=== PATIENT | female | born 1940 | race Caucasian/White ===

== ENCOUNTER → 2016-06-18 13:55 | Outpatient (CLI) | payer MEDICARE, BC ==
[2011-02-05 06:26] VITALS: BMI 31.0
== END | disposition home or self-care (01) ==
LOC: D.MRI 13:55
DX: M75.101 Unspecified rotator cuff tear or rupture of right shoulder, not specified as traumatic (principal)

== ENCOUNTER → 2017-03-09 15:48 | Outpatient (CLI) | payer MEDICARE, BC ==
[2011-02-05 06:26] VITALS: BMI 31.0
== END | disposition home or self-care (01) ==
LOC: D.MAMMO 10:45
DX: Z12.31 Encounter for screening mammogram for malignant neoplasm of breast (principal)

== ENCOUNTER → 2017-09-09 10:29 | Outpatient (CLI) | payer MEDICARE, BC ==
[2011-02-05 06:26] VITALS: BMI 31.0
== END | disposition home or self-care (01) ==
LOC: D.MRI 10:29
DX: M54.16 Radiculopathy, lumbar region (principal)

== ENCOUNTER → 2018-03-21 09:02 | Outpatient (CLI) | payer MEDICARE, BC ==
[2011-02-05 06:26] VITALS: BMI 31.0
[~2018-03-21 09:02] MED LIST: APAP325 MG PO; ASPIRIN EC81 M1 PO; CARDURA4 MG PO; DICLOFENAC SODI50 MG PO; DILAUDID2 MG PO; ESTRACE1 MG PO; GLUCOTROL 5 MG T5 MG PO; NEURONTIN 300300 MG PO; NORMODYNE / TR200 MG PO; OMEPRAZOLE20 M1 PO; PRAVACHOL40 MG PO
[2018-04-14 07:38] VITALS: BMI 29.2
== END | disposition home or self-care (01) ==
LOC: D.MRI 08:30
DX: M25.511 Pain in right shoulder (principal)

== ENCOUNTER 2018-04-14 07:00 | Day surgery (SDC) | payer MEDICARE, BC ==
[2018-04-12 12:13] LABS: HEMATOCRIT 33.6 % (36.0-48.0); HEMOGLOBIN 11.1 g/dL (12-16); MCH 29.1 pg (26.0-34.0); MEAN PLATELET VOLUME 10.3 fL (7.4-10.4); RBC 3.82 10x6/uL (4.00-5.40); RDW 12.6 % (11.5-14.5); WBC 5.8 10x3/uL (4.8-10.8)
[2018-04-12 12:27] LABS: ANION GAP 9.7 mmol/L (8-16); CALCIUM 8.6 mg/dL (8.5-10.1); CARBON DIOXIDE 29.5 mmol/L (21.0-32.0); CREATININE - SERUM 1.3 mg/dL (0.6-1.3); POTASSIUM - SERUM 4.2 mmol/L (3.5-5.1)
[~2018-04-14] VITALS: Ht 160 cm; Wt 74.8 kg
--- NOTE | ~2018-04-14 | OP ---
PATIENT NAME: MYNOR LEWIS MEDICAL RECORD: [id number] :42 [facility] DATE: SURGEON: ROSENDO RODRIGUEZ, TERI LOFTON DATE OF OPERATION: 04/14/2018 PREOPERATIVE DIAGNOSES: 1. Right shoulder rotator cuff tear. 2. Impingement syndrome. 3. Acromioclavicular arthritis. POSTOPERATIVE DIAGNOSES: 1. Right shoulder rotator cuff tear. 2. Impingement syndrome. 3. Acromioclavicular arthritis. PROCEDURES: 1. Right shoulder arthroscopic rotator cuff repair. 2. Arthroscopic distal clavicle excision done through separate incision-1 cm. 3. Arthrex subacromial decompression, acromioplasty, and bursectomy. SURGEON: Teri Robbins MD ANESTHESIA: General. INTRAOPERATIVE COMPLICATIONS: None. SUMMARY OF PATHOLOGIC FINDINGS: The patient did indeed have a large rotator cuff tear that required multiple suture anchor fixation. Furthermore, the patient had a profound anterior acromion hook with excoriation of the coracoacromial ligament as well as acromioclavicular arthritis. OPERATIVE SUMMARY IN DETAIL: After obtaining appropriate preoperative orthopedic surgery consent as well as anesthetic consultation, evaluation, and clearance, the patient was brought to the operating room and placed on the operating table in supine position. After general laryngeal mask airway was administered, the patient was placed in right lateral decubitus position. All pressure points were well padded to include down leg peroneal pad as well as axillary roll. The patient was held firmly to the operating table using vacuum pack suction system. The patient's right upper extremity and shoulder were then prepped and draped in routine sterile fashion. Arm was held in the Arthrex traction boom at 30 degrees of forward flexion, 30 degrees of abduction with 10 pounds of traction laterally. Arthroscopy was established in the glenohumeral joint from a posterior portal. Anterior portal was established in the anterior safe interval. Diagnostic arthroscopy did show the patient to have a large rotator cuff tear. A transrotator cuff tear portal was created for decortication of the patient's supraspinatus tendinous footprint. Ironically, the patient had already had the biceps tendon torn and there was no residual in the shoulder. After decortication of the supraspinatus tendinous footprint, attention was turned to the subacromial space. While in the subacromial space, Arthrex tissue ablation system was utilized to denude the undersurface of the acromion of all soft tissue elements and release the coracoacromial ligament. A 5-0 barrel bur was then used to perform acromioplasty at the level of acromioclavicular joint and then through a separate anterior arthroscopic portal under direct arthroscopic visualization, distal clavicle excision was done for 1 cm. Having completed this, further decortication was carried out of the OPERATIVE REPORT [id number] MYNOR LEWIS supraspinatus tendinous footprint and then a total of 3 inverted mattress sutures with FiberTape were then utilized to reapproximate the rotator cuff back to the footprint with a combination of 3 suture anchors that being a 5.5 SwiveLock and two 4.75 SwiveLocks resulting in excellent reapproximation of the tendon back to its footprint. Having completed this, arthroscopy portals were closed in routine interrupted fashion using 4-0 Prolene. Sterile dressings were applied. The patient was awakened and taken to recovery room in stable condition. All final needle and sponge counts were correct. TRANSINT:[id number] Voice Confirmation ID: [id number] DOCUMENT ID: [id number] 04/27/2018 Edited, akbar ROBBINS MD, TERI LOFTON at 1442 CC: [id number] DICTATION DATE: 04/15/181108 STAFF SCIENTIST: 04/15/18 1303 [facility] 04/14/18 [place] [id number]
[~2018-04-14 07:00] MED LIST changes: -DILAUDID2 MG PO
[2018-04-14 07:38] VITALS: BP 148/61; Ht 160 cm; Wt 74.8 kg
[2018-04-14] MEDS ORDERED: DILAUDID2 MG PO (11:35)
== END 2018-04-14 13:31 | disposition home or self-care (01) ==
LOC: D.OPS 07:00 → D.PAN 10:15 → D.OPS 13:31
PROVIDERS: Anesthesiology
DX: M75.122 Complete rotator cuff tear or rupture of left shoulder, not specified as traumatic (principal); M75.42 Impingement syndrome of left shoulder; M13.812 Other specified arthritis, left shoulder; Z01.812 Encounter for preprocedural laboratory examination

== ENCOUNTER → 2018-09-14 10:23 | Outpatient (CLI) | payer MEDICARE, BC ==
[~2018-09-14 10:23] MED LIST changes: +DILAUDID2 MG PO
== END | disposition home or self-care (01) ==
LOC: D.HCCARDIO 10:23
DX: I35.8 Other nonrheumatic aortic valve disorders (principal); I20.9 Angina pectoris, unspecified

== ENCOUNTER → 2018-09-21 06:51 | Outpatient (CLI) | payer MEDICARE, BC ==
[2018-04-14 07:38] VITALS: BMI 29.2
== END | disposition home or self-care (01) ==
LOC: D.US 06:51
PROVIDERS: ATTEND Family Medicine
DX: R10.11 Right upper quadrant pain (principal)

== ENCOUNTER 2018-09-29 06:04 | Outpatient (CLI) | payer MEDICARE, BC ==
[~2018-09-29] VITALS: Ht 160 cm; Wt 72.7 kg
--- NOTE | ~2018-09-29 | HEMODYNAMI ---
PATIENT:MYNOR LEWIS MEDICAL RECORD: [id number] : 44 LOCATION:[facility] ADMISSION DATE: 09/29/18 Generatedon:09/29/20188:21 Patient name: MYNOR LEWIS Patient #: [id number] SSN: : 1940 Date of study: 09/29/2018 Page: Of Hemodynamic Procedure Report Patient Data Patient Demographics Procedure consent was obtained First Name: MYNOR Gender: Female Last Name: DEBBIE : 1940 Middle Initial: C Age: 78 year(s) Patient #: [id number] Race: Unknown Additional ID: [id number] Contact details [address]: [address] [place] [address] State: [place] City: [place] Zip code: [address] Past Medical History Allergies Allergen Reaction Date Comments Reported Other allergy 09/29/2018 CODEINE, TRAMADOL Admission Admission Data Admission Date: 09/29/2018 Admission Time: 6:04 Height (in.): 63 BSA: 1.77 (m2) Height (cm.): 160.02 BMI: 28.87 (kg/m2) Weight (lbs.): 163 Weight (kg.): 73.94 Lab Results Lab Result Date: 09/29/2018 Lab Result Time: 0:00 Biochemistry Name Units Result Min Max BUN mg/dl 15 --(--*-)-- 7 18 Creatinine mg/dl 1.4 --(----)*- 0.6 1.3 CBC Name Units Result Min Max Hematocrit % 34.1 *-(----)-- 42 54 Hemoglobin g/dl 11.2 *-(----)-- 13.5 17.5 Procedure Procedure Types Cath Procedure Diagnostic Procedure [facility] w/Coronaries Procedure Description Procedure Date Procedure Date: 09/29/2018 Procedure Start Time: 8:09 Procedure End Time: 8:18 Procedure Staff Name Function Eliu Willard MD Performing Physician Jodie Bautista RN Nurse Sarai Myers RN [employer] Consultant Lilia Natarajan RT Scrub Procedure Data Cath Procedure Fluoroscopy Diagnostic fluoroscopy Total fluoroscopy Time: 2.2 time: 2.2 min min Diagnostic fluoroscopy Total fluoroscopy dose: 384 dose: 384 mGy mGy Contrast Material Contrast Material Type Amount (ml) Isovue 300 54 Entry Location Entry Primary Successful Side Size Upsize Upsize Entry Closure [place] ccessful Closure Location (Fr) 1 (Fr) 2 (Fr) Remarks Device Remarks Radial Right 6 Fr Mechanical artery Short Compression Estimated blood loss: 5 ml Diagnostic catheters Device Type Used For End Catheter Placement DIAGNOSTIC [place] 110cm 5 Procedure Fr catheter ([id number]) Procedure Complications No complications Procedure Medications Medication Administration Route Dosage 0.9% NaCl I.V. 100 ml/hr Oxygen etCO2 Nasal cannula 2 l/min Lidocaine 2% added to field 20 Heparin Flush Bag added to field 2 bags (1000units/500ml NS) Radial Cocktail added to field 1 syringe (Verapomil 2mg/Nitro 400mcg/Heparin 1500units) Versed I.V. 2 mg Fentanyl I.V. 50 mcg Versed I.V. 1 mg Fentanyl I.V. 25 mcg Hemodynamics Rest BSA: 1.77 (m2) HGB: 11.2 (g/dl) O2 Consumption: Estimated: 168.73 (ml/min) O2 Co nsumption indexed: Estimated:95.33 (ml/min/m) Heart Rate: 82 (bpm) Pressure Samples Time Site Value (mmHg) Purpose Heart Use Rate(bpm) 8:11 LV 146/-7,4 EDP 89 8:12 AO 130/57(85) Pullback 84 8:12 LV 139/-6,4 Pullback 84 Gradients Valve Time Site 1 Site 2 Mean SEP/DFP Peak To Heart Use (mmHg) (sec/min) Peak Rate (mmHg) (bpm) Aortic 8:12 LV AO 11 25 9 84 139/-6,4 130/57(85) Calculations Valve P-P Mean Valve Index Valve Source Name Gradient Area Flow (cm2) Aortic 9 11 9 11 Snapshots Pre Cath Intra NCS Post Cath Vital Signs Time Heart Resp SPO2 etCO2 NIBP (mmHg) Rhythm Pain Sedation Rate (ipm) (%) (mmHg) Status Level (bpm) 7:54:56 79 15 98 40.1 200/91(137) NSR 0 (11) 10(A) , No pain 7:59:44 79 12 99 40 201/89(134) NSR 0 (11) 10(A) , No pain 8:04:25 81 14 97 35.6 175/80(123) NSR 0 (11) 10(A) , No pain 8:08:51 83 15 87 35 153/79(116) NSR 0 (11) 9(A) , No pain 8:13:15 86 16 98 38.1 124/68(91) NSR 0 (11) 9(A) , No pain 8:17:35 87 16 96 34.1 141/69(99) NSR 0 (11) 10(A) , No pain Medications Time Medication Route Dose Verified Delivered Reason Notes Ef fectiveness by by 7:59:09 0.9% NaCl I.V. 100 Eliu Jodie used for ml/hr Sudheer Bautista psych tech 7:59:15 Oxygen etCO2 2 l/min Eliu Jodie used for Nasal Sudheer Bautista procedure cannula RN 7:59:20 Lidocaine 2% added 20ml Eliu Eliu for local to vial Sudheer Willard MD anesthetic field 7:59:25 Heparin Flush added 2 bags Eliu Eliu used for Bag to Sudheer Willard MD procedure (1000units/500ml field NS) 7:59:30 Radial Cocktail added 1 Eliu Eliu used for (Verapomil to syringe Sudheer Willard MD procedure 2mg/Nitro field 400mcg/Heparin 1500units) 8:01:30 Versed I.V. 2 mg Eliu Jodie for Sudheer Bautista sedation RN 8:01:40 Fentanyl I.V. 50 mcg Eliu Jodie for Sudheer Bautista sedation RN 8:06:48 Versed I.V. 1 mg Eliu Jodie for Sudheer Bautista sedation RN 8:06:54 Fentanyl I.V. 25 mcg Eliu Jodie for Sudheer Bautista sedation grey tender Log Time Note 7:33:27 Signed procedure consent form obtained from patient. 7:33:28 Diagnostic Cath status Elective 7:33:28 Time tracking: Regular hours (M-F 7:00 - 5:00) 7:33:31 Plan of Care:Hemodynamics will remain stable., Cardiac rhythm will remain stable., Comfort level will be maintained., Respiratory function will remain adequate., Patient/ family verbilizes understanding of procedure., Procedure tolerated without complication., Recovers from procedure without complications.. 7:33:35 Sarai Myres RN sent for patient. Start room use. 7:34:13 H&P Date Dictated: 09/29/2018 Within 30 days and on chart., H&P Addendum completed by physician on day of procedure. (MUST COMPLETE FOR ALL OUTPATIENTS). 7:34:28 Patient allergic to Other allergyCODEINE, TRAMADOL 7:36:14 Patient Height : 63 inches 7:36:19 Patient Weight : 163 lbs 7:45:52 Patient received from Pre/Post Procedure Room to CCL 1 Alert and oriented. Tansferred to table in Supine position. 7:45:53 Warm blankets applied, and paul hugger turned on for patient comfort. 7:45:54 Correct patient and procedure confirmed by team. 7:45:55 ECG and BP/O2 sat monitors applied to patient. 7:52:07 Vital chart was started 7:52:08 Baseline sample Acquired. 7:52:12 Rhythm: sinus rhythm 7:58:20 Full Disclosure recording started 7:58:23 Pre-procedure instructions explained to patient. 7:58:23 Pre-op teaching completed and patient verbalized understanding. 7:58:26 Family in patients room. 7:58:34 Patient NPO since Midnight. 7:58:58 Is patient on blood thinner?No 7:58:59 Patient diabetic? Yes. 7:59:00 If diabetic: On Metformin? No 7:59:04 Previous problem with sedation/anesthesia? No ? 7:59:06 Snore? Yes 7:59:07 Sleep apnea? No 7:59:08 Deviated septum? No 7:59:08 Opens mouth fully? Yes 7:59:09 0.9% NaCl 100 ml/hr I.V. was administered by Jodie Bautista RN; used for procedure; 7:59:09 Sticks out tongue? Yes 7:59:12 Airway obstruction? No ? 7:59:13 Dentures? No ? 7:59:15 Oxygen 2 l/min etCO2 Nasal cannula was administered by Jodie Bautista RN; used for procedure; 7:59:16 Modified Lincoln's test Ulnar < 7 seconds 7:59:18 Patient pain scale 0/10 ?. 7:59:20 Lidocaine 2% 20ml vial added to field was administered by Eliu Willard MD; for local anesthetic; 7:59:22 IV patent on arrival in left hand with 0.9% NaCl at [facility]. 7:59:25 Heparin Flush Bag (1000units/500ml NS) 2 bags added to field was administered by Eliu Willard MD; used for procedure; 7:59:30 Radial Cocktail (Verapomil 2mg/Nitro 400mcg/Heparin 1500units) 1 syringe added to field was administered by Eliu Willard MD; used for procedure; 7:59:52 Lab Result : BUN 15 mg/dl 7:59:52 Lab Result : Creatinine 1.4 mg/dl 7:59:52 Lab Result : Hemoglobin 11.2 g/dl 7:59:52 Lab Result : Hematocrit 34.1 % 7:59:55 Lab results completed and on chart. 7:59:58 Right Radial & Right Groin area was prepped with chlora-prep and draped in sterile fashion 7:59:59 Alarms reviewed by R. N. 8:00:00 Sharps counted by scrub and verified by R.N. 8:00:01 --------ALL STOP TIME OUT------ 8:00:02 Final Timeout: patient, procedure, and site verified with staff and physician. All members of the team are in agreement. 8:00:04 Right Radial & Right Groin site verified by team. 8:00:07 Maximum allowable Isovue 300 dose 300ml. Physician notified. (300ml for normal creatinines. For patients with creatinine of 1.7 or higher multiply weight(kg) x 5 divided by creatinine.) 8:00:10 Fire Safety Assessment: A--An alcohol-based skin anteseptic being used preoperatively., C--Open oxygen or nitrous oxide is being used., D--An ESU, laser, or fiber-optic light is being used. 8:00:14 Physical assessment completed. ASA score P 2 - A patient with mild systemic disease as per Eliu Willard MD. 8:00:17 Sedation plan: IV Moderate Sedation Medication:Versed, Fentanyl 8:00:20 Use device set Radial Dx or PCI 8:00:21 ACIST Syringe (37392) opened to sterile field. 8:00:24 Bag Decanter (2001S) opened to sterile field. 8:00:25 ACIST Hand Control (38966) opened to sterile field. 8:00:25 ACIST Manifold (46867) opened to sterile field. 8:00:25 Tegaderm 4 x 4 (1626W) opened to sterile field. 8:00:27 Medline Cath Pack ([id number]) opened to sterile field. 8:00:28 DIAGNOSTIC WIRE .035 260cm J wire (691646) opened to sterile field. 8:00:28 MBrace Wrist Support ([id number]) opened to sterile field. 8:00:29 NEEDLE Cook 21G 4cm Radial (L20814) opened to sterile field. 8:00:30 SHEATH 6FR Slender (80-1060) opened to sterile field. 8:01:30 Versed 2 mg I.V. was administered by Jodie Bautista RN; for sedation; 8:01:40 Fentanyl 50 mcg I.V. was administered by Jodie Bautista RN; for sedation; 8:06:48 Versed 1 mg I.V. was administered by Jodie Bautista RN; for sedation; 8:06:54 Fentanyl 25 mcg I.V. was administered by Jodie Bautista RN; for sedation; 8:09:03 Zero performed for pressure channel P1 8:09:17 Procedure started. 8:09:23 Local anesthetic to right radial artery with Lidocaine 2% by Eliu Willard MD.INITIAL ACCESS ONLY 8:10:25 A 6 Fr Short sheath was inserted into the Right Radial artery 8:10:46 A DIAGNOSTIC [place] 110cm 5 Fr catheter (183126) was advanced over the wire and used for Procedure. 8:11:37 LV gram done using REDDY 8:11:40 Injector settings: Ml/sec: 7, Volume: 15, 8:11:55 LV hemodynamics recorded. 8:12:11 EF : 55 % 8:13:48 LCA angiography performed. 8:14:50 RCA angiography performed. 8:15:08 Catheter removed. 8:15:47 TR BAND Standard ([id number]) opened to sterile field. 8:16:08 Procedure ended.(Physican Out) 8:16:36 Sheath removed intact; hemostasis achieved with Mechanical Compression to the Right Radial artery. 8:17:12 Fluoroscopy time 02.20 minutes. 8:17:16 Fluoroscopy dose: 384 mGy 8:17:16 Flurop Dose total: 384 8:17:19 Contrast amount:Isovue 300 54ml. 8:17:20 Sharps counted by scrub and verified by R.N. 8:17:22 TR band inflated with 10cc of air. 8:17:27 Post-procedure physical assessment completed. ASA score P 2 - A patient with mild systemic disease as per Eliu Willard MD. 8:17:30 Post procedure rhythm: sinus rhythm 8:17:32 Estimated blood loss: 5 ml 8:17:33 Post procedure instruction explained to patient.Patient verbalizes understanding. 8:17:33 Patient needs reinforcement of post procedure teaching. 8:18:32 Procedure and supply charges have been captured, reviewed, submitted and are correct. 8:18:35 Procedure Complication : No complications 8:18:37 Vital chart was stopped 8:18:37 See physician's report for complete and final results. 8:18:39 Report given to Pre/Post Procedure Room. 8:18:41 Patient transfered to Pre/Post Procedure Room with Bed. 8:18:43 Procedure ended. 8:18:43 Full Disclosure recording stopped 8:18:46 End room use (Document Last) Device Usage Item Name Manufacture Quantity Catalog Hospital Part Current Minimal Lot# / Number Charge Number Stock Stock Serial# Code ACIST Acist 1 32263 469007 324133 697294 20 Syringe Medical (19972) Systems Inc Bag Microtek 1 2001S 843409 40410 686238 5 Decanter Medical Inc. () ACIST Hand Acist 1 88085 087526 613690 125878 5 Control Medical (56355) Systems Inc ACIST Acist 1 08736 254357 535020 308821 5 Manifold Medical (84008) Systems Inc Tegaderm 4 3M 1 1626W 446269 864688 809569 5 x 4 (1626W) Medline Medline 1 [id number] 603989 58606 826992 5 Cath Pack ([id number]) DIAGNOSTIC St Gustavo 1 975750 632880 505764 959432 30 WIRE .035 260cm J wire (855325) MBrace Advanced 1 140-0250-00 598937 60599 796538 5 Wrist Vascular Support Dynamics ([id number]) NEEDLE Trov Medical 1 G03049 314939 467801 225007 5 21G 4cm Radial (O80050) SHEATH 6FR Terumo 1 [id number] 978317 615108 898311 5 Slender (80-1060) DIAGNOSTIC Terumo 1 40-1132 151359 538139 269741 5 [place] 110cm 5 Fr catheter (601851) TR BAND Terumo 1 [id number] 928732 734670 864201 40 Standard ([id number]) Signature Audit [place] Stage Time Signature Unsigned Intra-Procedure 09/29/2018 Lilia Natarajan 8:21:31 AM RT(R) [facility] [address] [place] [address]
[2018-09-29 06:28] VITALS: BP 184/81; Ht 160 cm; Wt 72.7 kg
[2018-09-29 06:46] LABS: BASOPHILS 0 % (0-2); EOSINOPHILS 0.6 % (0-7); HEMATOCRIT 34.1 % (36.0-48.0); HEMOGLOBIN 11.2 g/dL (12-16); IMMATURE GRANULOCYTES 0.3 % (0-5); LYMPHOCYTES 26.2 % (15-50); MCH 28.5 pg (26.0-34.0); MCHC 32.8 g/dL (31.0-37.0); MCV 86.8 fL (80.0-100.0); NEUTROPHILS 65.9 % (40-80); RBC 3.93 10x6/uL (4.00-5.40); WBC 6.3 10x3/uL (4.8-10.8)
[2018-09-29 07:00] LABS: ANION GAP 16.2 mmol/L (8-16); CARBON DIOXIDE 24.4 mmol/L (21.0-32.0); CREATININE - SERUM 1.4 mg/dL (0.6-1.3); POTASSIUM - SERUM 4.6 mmol/L (3.5-5.1)
[2018-09-29 08:10] LABS: PLATELET ESTIMATE NORMAL
[2018-09-29 08:13] LABS: PLATELET MORPHOLOGY PLT CLUMPS PRESENT
[2018-09-29 08:21] LABS: PLATELET COUNT 149.6 10x3/uL (130-400)
[2018-09-29 08:22] LABS: MEAN PLATELET VOLUME 10.34 fL (7.4-10.4)
--- NOTE | 2018-09-29 08:35 | NUR ---
RECIEVED TO ROOM VIA STRETCHER FROM CLINICAL NEUROPSYCHOLOGIST WITH TR BAND TO R/WRIST CDI NO BLEEDING OR HEAMTOMA NOTED. PATIENT CONNECTED TO MONITOR FOR OBSERVATION WITH HR SINUS AT 82 BP 175/71. PATIENT DENIED PAIN OR NEEDS. INSTRUCTED PATIENT TO KEEP RUE STRAIGHT NO BENDING OR FLEXING OF WRIST
--- NOTE | 2018-09-29 08:45 | NUR ---
TR BAND REMAINS CDI WITH NO BLEEDING OR HEMATOMA NOTED. PATIENT DENIED PAIN OR NEEDS. VSS
--- NOTE | 2018-09-29 09:10 | NUR ---
REPOSITIONED TO [facility] UP 30 FOR COMFORT. TR BAND IS CDI PATIENT DENIED NAUSEA AND REQUEST COFFEE.
--- NOTE | 2018-09-29 09:28 | NUR ---
VISITING WITH FAMILY AT BEDSIDE. TR BAND TO R/WRIST IS CDI WITH CHEST PAIN DENIED
--- NOTE | 2018-09-29 09:56 | NUR ---
PATIENT UP TO BATHROOM WITH CHEST PAIN DENIED. TR BAND REMAINS CDI TO R/WRIST
--- NOTE | 2018-09-29 10:24 | NUR ---
2 CC AIR REMOVED FROM TR BAND WITH NO BLEEDING OR HEMATOMA NOTED
--- NOTE | 2018-09-29 10:36 | NUR ---
2 CC AIR REMOVED FROM TR BAND WITH NO BLEEDING NOTED. VERBAL AND WRITTEN DISCHARGE GONE OVER WITH PATIENT AND FAMILY
--- NOTE | 2018-09-29 10:48 | NUR ---
2 CC AIR REMOVED FROM TR BAND WITH NO BLEEDING NOTED. PIV REMOVED WITH DRESSING APPLIED. PATIENT UP TO GET DRESSED FOR DISCHARGE HOME
--- NOTE | 2018-09-29 11:05 | NUR ---
TR BAND REMOVED WITH DRESSING APPLIED. PATIENT DENIED PAIN OR NEEDS LEFT VIA WC TO PARKING FOR TRANSPORT HOME
== END 2018-09-29 11:06 | disposition home or self-care (01) ==
LOC: D.CATH 06:04
PROVIDERS: ATTEND Internal Medicine Cardiovascular Disease
DX: R07.89 Other chest pain (principal); Z01.812 Encounter for preprocedural laboratory examination

== ENCOUNTER → 2018-12-28 08:44 | Outpatient (CLI) | payer MEDICARE, BC ==
[2018-09-29 06:28] VITALS: BMI 28.4
== END | disposition home or self-care (01) ==
LOC: D.NM 08:44
PROVIDERS: ATTEND Internal Medicine Gastroenterology
DX: R10.9 Unspecified abdominal pain (principal)

== ENCOUNTER 2019-04-12 08:00 | Outpatient (CLI) | payer MEDICARE, BC ==
[2018-09-29 06:28] VITALS: BMI 28.4
== END 2019-04-12 23:59 | disposition home or self-care (01) ==
LOC: D.MAMMO 08:00
PROVIDERS: ATTEND Family Medicine
DX: Z12.31 Encounter for screening mammogram for malignant neoplasm of breast (principal)